=== PATIENT | female | born 1965 | race Caucasian/White ===

== ENCOUNTER → 2017-07-25 | Outpatient (CLI) | payer OTHER | END | disposition home or self-care (01) | LOC: KCIC MRI 16:30 | DX: M48.02 Spinal stenosis, cervical region (principal) | CPT/HCPCS: 72141 ==

== ENCOUNTER → 2017-08-21 | Outpatient (CLI) | payer OTHER ==
[~2017-08-21] MED LIST: IOHEXOL 180 MG/ML 10 ML VIAL.; methylPREDNISolone ACETATE 40 MG/ML VIAL.; methylPREDNISolone ACETATE 80 MG/ML VIAL.
== END | disposition home or self-care (01) ==
LOC: PNCL 13:45
DX: M50.123 Cervical disc disorder at C6-C7 level with radiculopathy (principal)
CPT/HCPCS: 62321; J1030; J1040; Q9965

== ENCOUNTER → 2017-09-11 | Outpatient (CLI) | payer OTHER | END | disposition home or self-care (01) | LOC: PNCL 14:34 | DX: M50.123 Cervical disc disorder at C6-C7 level with radiculopathy (principal); Z88.8 Allergy status to other drugs, medicaments and biological substances | CPT/HCPCS: 62321; J1030; J1040; Q9965 ==

== ENCOUNTER → 2018-09-04 | Outpatient (CLI) | payer OTHER ==
[~2018-09-04] MED LIST changes: +ACET-422 PO; +BUPR150T15 PO; +CETI10TA22 PO; -IOHEXOL 180 MG/ML 10 ML VIAL.; +LORA1TAB PO; +NAPR-514 PO; +RANI-376 PO; -methylPREDNISolone ACETATE 40 MG/ML VIAL.; -methylPREDNISolone ACETATE 80 MG/ML VIAL.
--- NOTE | 2018-09-04 18:02 | KCIC ---
MRI of the cervical spine without contrast 09/04/2018 CLINICAL HISTORY: Chronic neck pain with left arm numbness. TECHNIQUE: Unenhanced T1-weighted, T2-weighted and inversion recovery sagittal and gradient echo and T2-weighted axial images of the cervical spine were obtained. FINDINGS: Comparison study is dated 07/25/2017. There is straightening of the normal cervical lordosis. Degenerative signal changes are seen involving all of the disks of the cervical spine. Degenerative signal changes are seen within the marrow surrounding these discs. Loss of height of the C5-6 and C6-7 discs is noted. No area of abnormal signal intensity is seen involving the cervical spinal cord. A 1.5 cm hemangioma is seen involving the T7 vertebral body. No area of abnormal signal intensity is seen involving the cervical spinal cord. At the C2-3 disc space there is a mild generalized disc bulge. Degenerative changes are seen involving the uncovertebral and facet joints bilaterally. These findings do not result in significant central spinal canal or neural foraminal stenosis. At the C3-4 disc space there is a mild generalized disc bulge. Degenerative changes are seen involving the uncovertebral and facet joints, left greater than right. These findings do not result in significant central spinal canal stenosis. Moderate left neural foraminal stenosis is seen. The right neural foramen is patent. At the C4-5 disc space there is a mild to moderate generalized disc bulge. Degenerative changes are seen involving the uncovertebral and facet joints, left greater than right. These findings when combined do not result in significant central spinal canal stenosis. Mild to moderate left neural foraminal stenosis is seen. The right neural foramen is patent. At the C5-6 disc space there is a moderate generalized disc bulge. This is eccentric to the left. Degenerative changes are seen involving the uncovertebral and facet joints, left greater than right. These findings when combined do not result in significant central spinal canal stenosis. Moderate to severe left neural foraminal stenosis is seen. The right neural foramen is patent. At the C6-7 disc space there is a mild to moderate generalized disc bulge. Degenerative changes are seen involving the uncovertebral and facet joints bilaterally. These findings do not result in significant central spinal canal central spinal canal stenosis. Mild bilateral neural foraminal stenosis is seen. At the C7-T1 disc space there is a mild generalized disc bulge. Degenerative changes are seen involving the facet joints bilaterally. Superimposed on the disc bulge is a right paracentral focal disc protrusion. This measures 2 mm in AP diameter. These findings when combined do not result in significant central spinal canal stenosis. No neural foraminal stenosis is seen. Since the previous examination there has been no significant interval change. IMPRESSION: Degenerative changes are seen throughout the cervical spine. These findings do not result in significant central spinal canal stenosis at any level. Multilevel left-sided neural foraminal stenosis of varying severity is seen as discussed above. Electronically signed by: Augustine Briones MD (09/04/2018 5:59 PM) [facility]
== END | disposition home or self-care (01) ==
LOC: KCIC MRI 16:05
PROVIDERS: ATTEND Family Medicine
DX: M47.892 Other spondylosis, cervical region (principal); M48.02 Spinal stenosis, cervical region; M47.814 Spondylosis without myelopathy or radiculopathy, thoracic region; M50.23 Other cervical disc displacement, cervicothoracic region; D18.09 Hemangioma of other sites
CPT/HCPCS: 72141

== ENCOUNTER → 2018-09-29 | Outpatient (CLI) | payer OTHER ==
--- NOTE | 2018-09-30 09:48 | PAIN ---
DATE OF SERVICE: 09/29/2018 PROGRESS NOTE FOR PAIN CLINIC: DIAGNOSES: Cervical radiculopathy with cervical degenerative disk disease. HISTORY OF PRESENT ILLNESS: The patient is a 53-year-old female who returns for followup status post previous cervical epidural steroid injection last seen in 09/2017. The patient had 2 cervical epidural injections at that time, the first one with about 90% improvement. The patient reports the pain has returned now over the past 2 weeks, has been much more noticeable and miserable in the base of the neck radiating to the left shoulder and arm and upper extremity. The patient reports it is 8 on a scale of 10 at its worst, 4 on average, 2 at its least and is a 4 today. The patient reports it is in the base of the neck going between the shoulder blades, more on the left than the right into the posterior shoulder, posterior triceps and into the forearm, into the medial aspect, into the little finger as well. The patient reports it is aching, sharp, stabbing, on and off in intensity, but worse with weightbearing, worse with extending the neck forward and extension posteriorly of the cervical spine as well as turning to the left or the right can exacerbate the pain fairly significantly. The patient reports it awakens her from sleep at night, intermittently, but not every night, it has been much worse over the past 2 weeks is noted. The patient describes it as stabbing, aching and sharp and shooting in the left arm. The patient reports no new motor or sensory deficits, but it is much more noticeable in the morning. No new other changes. PHYSICAL EXAMINATION: VITAL SIGNS: The patient's blood pressure is 140/76, pulse is 66, respirations are 20, temperature 98.2 degrees Fahrenheit, weight is 114 pounds. GENERAL: The patient is awake, alert, oriented, appropriate, very pleasant demeanor. HEENT: Head normocephalic, atraumatic. Extraocular movements are intact and symmetrical. Oral cavity: Mucous membranes are moist and pink. Dentition is intact. NECK: Shows anterior throat supple without palpable lymphadenopathy noted. Swallow reflex symmetrical. CHEST: Shows normal with inspection. Breath sounds clear to auscultation bilaterally. HEART: Shows S1, S2 clear. No murmurs auscultated. ABDOMEN: Soft, nontender, nondistended. No palpable organomegaly is noted. No rebound or guarding demonstrated. BACK: Shows spine grossly in the midline. Normal appearing thoracic kyphosis and cervical lordotic curvature. Cervical paraspinous muscle shows symmetrical on inspection, with palpation shows some moderate tenderness diffusely throughout the middle and lower distribution of the paraspinous muscles, more on the left than right and into the superior medial and lateral trapezius on the left compared to the right, very firm musculature in the trapezius as well as the rhomboid muscle on the left in the supra and infraspinatus muscles, also very firm, tender on the left compared to the right. The patient's neck shows good rotational motion, but guarded with extension and forward flexion is performed without difficulty. Right and left lateral rotation past 45 degrees is guarded as well and very slow and deliberate. EXTREMITIES: Upper extremities show deep tendon reflexes are 2+ in the biceps, triceps tendons. Motor exam is strong with rfid manager strength rated at 5/5 as is bicep and tricep flexion. Peripheral pulses are 2+ radial distribution. No peripheral edema is noted. Options were discussed with the patient. The patient's old chart was reviewed as his current medication regimen updated. Current review of systems updated today as well. We will proceed with a preauthorization for a cervical epidural steroid injection at C5-C6 level with a significant radiculopathy in the left upper extremity in C5-C6 dermatomal distribution as well as C6-C7 dermatomal distribution. The patient will wait for preauthorization. In the meantime, we will try low dose prednisone 5 mg to take at bedtime extended release for the next 4-5 days and have her return in less than one week if approved and we will plan on cervical epidural steroid injection at that time. The patient was given instruction as well as side effects to be aware of with the medication and will follow up as scheduled. TIA LIMA MD DR: CARLOS/leah JOB#: [id number] / [id number]
== END | disposition home or self-care (01) ==
LOC: PNCL 14:12
PROVIDERS: ATTEND Anesthesiology
DX: M50.10 Cervical disc disorder with radiculopathy, unspecified cervical region (principal)
CPT/HCPCS: G0463

== ENCOUNTER → 2018-10-20 | Outpatient (CLI) | payer OTHER ==
[~2018-10-20] MED LIST changes: +IOHEXOL 180 MG/ML 10 ML VIAL. ONE; +methylPREDNISolone ACETATE 40 MG/ML VIAL. ONE; +methylPREDNISolone ACETATE 80 MG/ML VIAL. ONE
--- NOTE | 2018-10-21 00:06 | PAIN ---
DATE OF SERVICE: 10/20/2018 PROGRESS NOTE FOR PAIN CLINIC DIAGNOSIS: Cervical radiculopathy with cervical degenerative disk disease. HISTORY OF PRESENT ILLNESS: The patient is a 53-year-old female who returns for followup status post initial evaluation, preauthorization for cervical culture ejection, still significant pain in the base and neck and left upper extremity. The patient reports it is worse with activity, repetitive motion of the left upper extremity weightbearing with the left arm. The patient reports it is an 8 on a scale of 10 at its worst in the past week, 6 on average, 3 at its least and is a 6 today. The patient reports it is aching, sharp or often intensity, still waking her from sleep occasionally but most nights she sleeps fairly well. The patient reports no new motor or sensory deficits and no new changes. PHYSICAL EXAMINATION: VITAL SIGNS: The patient's blood pressure 107/74, pulse 69, respirations 18 and temperature 98.2 degrees Fahrenheit. Height is 62 inches and weight is 117 pounds. GENERAL: The patient is awake, alert, oriented, appropriate and very pleasant demeanor. HEENT: Head shows normocephalic and atraumatic. Extraocular movements are intact and symmetrical. Oral cavity, mucous membranes are moist and pink. Dentition is intact. NECK: Shows anterior throat supple, without palpable lymphadenopathy noted. Swallow reflex is symmetrical. CHEST: Shows normal on inspection. Breath sounds clear to auscultation bilaterally. HEART: Shows S1 and S2 clear. No murmurs auscultated. ABDOMEN: Soft, nontender and nondistended. No palpable organomegaly is noted. No rebound or guarding demonstrated. BACK: Shows spine grossly in the midline. Normal-appearing cervical lordotic curvature, thoracic kyphotic curvature and lumbar lordotic curvature. The patient's neck shows with palpation, some moderate tenderness diffusely in the base of the cervical paraspinous musculature into the left trapezius as well but only diffusely. The patient shows good rotation of motion of the cervical spine, both laterally as well as extension and flexion without significant difficulty or limitation. EXTREMITIES: The patient's upper extremities show deep tendon reflexes at 2+ in the biceps and triceps tendons. Motor exam is strong with platform mill supervisor strength rated at 5/5 platform mill supervisor strength as well as bicep and tricep flexion. Peripheral pulses are 2+, radial distribution. No peripheral edema is noted bilaterally. Options were discussed with the patient and the patient's son who is accompanied her to visit today. We will proceed with a cervical epidural steroid injection today with fluoroscopic guidance. Risks were again discussed including, but not limited to bleeding, infection, possibility of epidural hematoma and subsequent neurological compromise, dural puncture headaches, spinal cord and/or nerve damage, side effects of steroid medication and poor results regarding pain control. The patient understands and wished to proceed. The patient will return to the clinic in approximately 2 weeks for followup, was counseled as to return appointment, activity level and side effects to be aware of. DIAGNOSIS: Cervical radiculopathy with cervical degenerative disk disease. PROCEDURE: Cervical epidural steroid injection translaminar approach, C6-C7 level using C-arm fluoroscopic guidance under sterile prep and drape using local anesthetic. MEDICATION INJECTED: A total of 120 mg Depo-Medrol plus 5 mL of preservative-free normal saline and 2 mL of contrast. CONDITION AT DISCHARGE: Stable. The patient tolerated the procedure well and had no complications. TIA LIMA MD DR: CARLOS/leah JOB#: [id number] / [id number]
== END ==
LOC: PNCL 13:53
PROVIDERS: ATTEND Anesthesiology
DX: M50.123 Cervical disc disorder at C6-C7 level with radiculopathy (principal); M54.2 Cervicalgia
CPT/HCPCS: 62321; J1030; J1040; Q9965

== ENCOUNTER → 2018-11-19 | Outpatient (CLI) | payer OTHER ==
--- NOTE | 2018-11-20 00:55 | PAIN ---
DATE OF SERVICE: 11/19/2018 PROGRESS NOTE FOR PAIN CLINIC DIAGNOSES: Cervical radiculopathy with cervical degenerative disk disease. HISTORY OF PRESENT ILLNESS: The patient is a 53-year-old female who returns for followup status post cervical epidural steroid injection x1, with about 95% improvement for first 2-1/2 weeks. The patient reports the pain is now returning, but is still doing well. The patient has increased her activity and feels that she may have "overdone it," but is feeling so much better with still about a 90% improvement overall. The patient reports the pain is a 9 on a scale of 10 at its worst in the past week, 4 on average, 2 at its least, and is 2 today. The patient reports it is stabbing, aching, sharp in the base of the neck and left upper extremity, left shoulder, left arm, mostly in the posterior aspect of the triceps in the forearm, but also in the medial aspect of the left upper arm as well. The patient reports that tingling and burning at times. No overt loss of motor function, but significant fatigability with increased activity. She has increased activity quite a bit when traveling, also took a [address] [place] a holiday 11/13/2018, which exacerbated the pain to a moderate extent as well. The patient reports no new motor or sensory deficits, no new bowel or bladder incontinence or other complaints. PHYSICAL EXAMINATION: VITAL SIGNS: The patient's blood pressure 115/83, pulse 65, respirations 18, temperature is 98.4 degrees Fahrenheit, height is 62 inches, weight is 121 pounds. GENERAL: The patient is awake, alert, oriented, appropriate, very pleasant demeanor. HEENT: Head is normocephalic, atraumatic. Extraocular movements are intact and symmetrical. Oral cavity: Mucous membranes are moist and pink. Dentition is intact. NECK: Shows anterior throat supple without palpable lymphadenopathy noted. Swallow reflex is symmetrical. CHEST: Shows normal with inspection. Breath sounds clear to auscultation bilaterally. HEART: Shows S1, S2 clear. No murmurs auscultated. ABDOMEN: Soft, nontender, nondistended. No palpable organomegaly is noted. No rebound or guarding demonstrated. BACK: Shows spine grossly in the midline. Cervical lordotic curvature shows normal on inspection. With palpation, some moderate tenderness diffusely bilaterally, but only diffusely without significant radiation. The patient has good rotational motion of cervical spine, both laterally greater than 45 degrees, closer to 90 degrees with right and left lateral as well as extension and full forward flexion without significant pain reported. EXTREMITIES: The patient's upper extremities show deep tendon reflexes at 2+ in the biceps and triceps tendons. Motor exam is strong with 5/5 urgent care technician strength, bicep and tricep flexion and symmetrical. Peripheral pulses are 2+ in the radial distribution bilaterally. No edema is noted. Options were discussed with the patient. The patient's old chart was reviewed, her current medication regimen updated, current review of systems updated today as well. We will proceed with a second in this series of cervical epidural steroid injection today with fluoroscopic guidance. Risks were again discussed including, but not limited to bleeding, infection, possibility of epidural hematoma, subsequent neurological compromise, dural puncture, headaches, spinal cord and/or nerve damage, side effects of steroid medication, and poor results regarding pain control. The patient understands and wished to proceed. The patient will return to clinic in approximately 2 weeks for followup, was counseled on return appointment, activity level, and side effects to be aware of. DIAGNOSES: Cervical radiculopathy with cervical degenerative disk disease. PROCEDURE: Cervical epidural steroid injection, translaminar approach C6-C7 level using C-arm fluoroscopic guidance under sterile prep and drape using local anesthetic. MEDICATION INJECTED: A total of 120 mg Depo-Medrol plus 5 mL of preservative-free normal saline and 2 mL of Isovue for contrast. CONDITION AT DISCHARGE: Stable. The patient tolerated procedure well, had no complications. TIA LIMA MD DR: CARLOS/leah JOB#: [id number] / [id number]
== END ==
LOC: PNCL 13:43
PROVIDERS: ATTEND Anesthesiology
DX: M50.123 Cervical disc disorder at C6-C7 level with radiculopathy (principal)
CPT/HCPCS: 62321; J1030; J1040; Q9965

== ENCOUNTER → 2018-12-24 | Outpatient (CLI) | payer OTHER ==
[~2018-12-24] MED LIST changes: +OMEP20TA63 PO
--- NOTE | 2018-12-24 22:36 | PAIN ---
DATE OF SERVICE: 12/24/2018 PROGRESS NOTE FOR PAIN CLINIC DIAGNOSES: Cervical radiculopathy with cervical degenerative disk disease. HISTORY OF PRESENT ILLNESS: The patient is a 53-year-old female who returns for followup status post cervical epidural steroid injections x 2. The patient reports approximately 50% improvement overall in the neck and left upper extremity pain. The patient reports no new motor or sensory deficits, no new changes, still pain with repetitive motion of the left arm, reaching or holding items and with weightbearing. The patient reports it does not awaken her from sleep at night, also some pain in the left shoulder radiating into the left arm, mostly in the posterior tricep, posterior forearm, into the hand with some numbness and tingling. The patient reports it is aching, sharp, shooting, dull and tingling in the hand. The patient reports it is 7 on a scale of 10 at its worst in the past week, 4 on average, 4 at its least and is a 4 today. The patient reports no new motor or sensory deficits or other complaints. PHYSICAL EXAMINATION: VITAL SIGNS: The patient's blood pressure 109/75, pulse 71, respirations 16, temperature 98.3 degrees Fahrenheit and weight is 120 pounds. GENERAL: The patient is awake, alert, oriented, appropriate, very pleasant demeanor. HEENT: Shows normocephalic, atraumatic. Extraocular movements are intact and symmetrical. Oral cavity: Mucous membranes moist and pink. Dentition is intact. NECK: Shows anterior throat is supple without palpable lymphadenopathy noted. Swallow reflex symmetrical. CHEST: Shows normal on inspection. Breath sounds clear to auscultation bilaterally. HEART: Shows S1, S2 clear. No murmurs auscultated. ABDOMEN: Soft, nontender and nondistended. BACK: Shows spine grossly in the midline. Cervical lordotic curvature slightly flattened with some moderate tenderness with palpation of the lumbar and the cervical paraspinous musculature but are symmetrical bilaterally. No trigger points, no radiation. The patient has good rotational motion, slightly guarded with far left lateral rotation, but full extension and full forward flexion without difficulty or pain reported. EXTREMITIES: The patient's upper extremities show deep tendon reflexes 2+ in the biceps and triceps tendons. Motor exam is strong with 5/5 recoater strength, bicep and tricep flexion and symmetrical. Peripheral pulses are 2+ in radial distribution. No peripheral edema is noted bilaterally. Options were discussed with the patient and the patient's spouse who accompanies her to visit today. The patient's old chart was reviewed as her current medication regimen updated. Current review of systems updated today as well. We will proceed with a third in the series of cervical epidural steroid injection today with fluoroscopic guidance. Risks were again discussed including, but not limited to bleeding, infection, possibility of epidural hematoma, subsequent neurologic compromise, dural puncture, headaches, spinal cord and/or nerve damage, side effects of steroid medication and poor results regarding pain control. The patient understands and wished to proceed. The patient will return to the clinic in approximately 2 weeks for followup, was counseled as to return appointment, activity level and side effects to be aware of. DIAGNOSES: Cervical radiculopathy with cervical degenerative disk disease. PROCEDURES: Cervical epidural steroid injection, translaminar approach C6-C7 level using C-arm fluoroscopic guidance under sterile prep and drape using local anesthetic. MEDICATION INJECTED: A total of 120 mg of Depo-Medrol plus 5 mL of preservative-free normal saline and 2 mL of contrast. CONDITION AT DISCHARGE: Stable. The patient tolerated the procedure well, had no complications. TIA LIMA MD DR: CARLOS/leah JOB#: [id number] / [id number]
== END ==
LOC: PNCL 14:06
PROVIDERS: ATTEND Anesthesiology
DX: M50.123 Cervical disc disorder at C6-C7 level with radiculopathy (principal)
CPT/HCPCS: 62321; J1030; J1040; Q9965

== ENCOUNTER → 2019-01-28 | Outpatient (CLI) | payer OTHER ==
[~2019-01-28] MED LIST changes: -IOHEXOL 180 MG/ML 10 ML VIAL. ONE; -methylPREDNISolone ACETATE 40 MG/ML VIAL. ONE; -methylPREDNISolone ACETATE 80 MG/ML VIAL. ONE
--- NOTE | 2019-01-28 23:24 | PAIN ---
DATE OF SERVICE: 01/28/2019 DIAGNOSIS: Cervical radiculopathy with cervical degenerative disk disease and cervical spinal stenosis HISTORY OF PRESENT ILLNESS: The patient is a 53-year-old female who returns for followup status post cervical epidural steroid injection x 3. The patient reports initially about 50% improvement, but after last injection, minimal improvement over the baseline of the neck and radicular pain in her left upper extremity. The patient reports still significant pain in the base of the neck, left shoulder radiating into the left arm, mostly in the posterior triceps, posterior aspect of the forearm, into the hand and fingers, especially the fourth and fifth finger on the left hand. The patient reports very limited rotation of motion and mobility with ability to turn her head to the left with very significant decreased range of motion secondary to the pain and radiculopathy in the left arm. The patient reports her pain is tingling. It is aching, sharp, radiating in the left arm is noted, 9 on a scale of 10 at its worst, 6 on average and 4 at its least and is a 6 today. The patient reports no loss of motor function, but significant fatigability with left arm and favors the left arm by using her right arm more frequently with any activities. The patient reports it is awakening her from sleep at night, still about every 4-5 hours, but no symptoms on the right upper extremity. PHYSICAL EXAMINATION: VITAL SIGNS: The patient's blood pressure 121/84, pulse 78, respirations 16, temperature is 98.2 degrees Fahrenheit, weight is 121 pounds. GENERAL: The patient is awake, alert, oriented, appropriate, very pleasant demeanor. HEENT: Head shows normocephalic, atraumatic. Extraocular movements are intact and symmetrical. Oral cavity: Mucous membranes moist and pink. Dentition is intact. NECK: Shows anterior throat supple without palpable lymphadenopathy noted. Swallow reflex symmetrical. CHEST: Shows normal on inspection. Breath sounds clear to auscultation bilaterally. HEART: Shows S1, S2 clear. ABDOMEN: Soft, nontender, nondistended. BACK: Shows spine grossly in the midline. Cervical paraspinous muscle shows symmetrical on inspection with normal cervical lordotic curvature with palpation some significant tenderness in the inferior aspect of the cervical paraspinous musculature, more on the left than the right and into the superior medial trapezius on the left as well. Very firm musculature, more tender on the left than the right. The patient shows significant limitation in range of motion with lateral rotation of the head to the left with significant guarding of the cervical spine, even to 45 degrees on the left side. Right side shows much better range of motion with closer to 90 degrees far lateral rotation; extension again, very significant pain and limited range of motion secondary to pain with extension greater than 15-20 degrees off midline. Full forward flexion is performed chin to chest. Again, somewhat guarded, but with better range. EXTREMITIES: The patient's upper extremities show deep tendon reflexes 2+ in the biceps and triceps tendons. Motor exam is 5/5 on the right, 4/5 on the left with clerk general strength, bicep and tricep flexion. The patient's peripheral pulses are 2+ in the radial distribution. No peripheral edema is noted bilaterally. ASSESSMENT AND PLAN: Options were discussed with the patient. The patient's old chart was reviewed as her current medication regimen updated. Current review of systems updated today as well and we will hold on any further injections at this time. Recommendation is to have evaluation with neurosurgeon regarding her cervical spinal stenosis as well as cervical radiculopathy and cervical degenerative disk disease with clinical radiculopathy in the C6-C7 dermatome distribution on the left upper extremity. As patient has not responded as successfully with epidural steroid injections this last set of injections, I feel that we should seek a neurosurgical opinion, recommend Dr. Jamison Guillory for such. The patient will clear this with her insurance provider and will have an MRI scan of her cervical spine available for neurosurgical reviewed as well. At this time, the patient will follow up as necessary. TIA LIMA MD DR: CARLOS/leah JOB#: [id number] / [id number]
== END | disposition home or self-care (01) ==
LOC: PNCL 13:24
PROVIDERS: ATTEND Anesthesiology
DX: M50.10 Cervical disc disorder with radiculopathy, unspecified cervical region (principal); M48.02 Spinal stenosis, cervical region
CPT/HCPCS: G0463

== ENCOUNTER → 2019-07-02 | Outpatient (CLI) | payer OTHER ==
[~2019-07-02] MED LIST changes: -CETI10TA22 PO; +CETI10TA24 PO
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
== END | disposition home or self-care (01) ==
LOC: PNCL 14:02
PROVIDERS: ATTEND Anesthesiology
DX: M50.10 Cervical disc disorder with radiculopathy, unspecified cervical region (principal); M48.02 Spinal stenosis, cervical region; M53.3 Sacrococcygeal disorders, not elsewhere classified
CPT/HCPCS: G0463

== ENCOUNTER → 2019-07-16 | Outpatient (CLI) | payer OTHER ==
[~2019-07-16] MED LIST changes: +BUPIVACAINE MPF 0.25% 10 ML VIAL. ONE; +IOHEXOL 180 MG/ML 10 ML VIAL. ONE; +methylPREDNISolone ACETATE 80 MG/ML VIAL. ONE
--- NOTE | 2019-07-16 22:27 | PAIN ---
DATE OF SERVICE: 07/16/2019 PROGRESS NOTE FOR PAIN CLINIC DIAGNOSIS: Coccygodynia. HISTORY OF PRESENT ILLNESS: The patient is a 53-year-old female who returns for followup status post cervical epidural steroid injections and recent office visit for preauthorization for sacrococcygeal ligament injection. The patient has obtained this now and would like to proceed, still significant pain in the tailbone and coccyx region after injury with noted nondisplaced early stage healing fracture of the superior coccyx. The patient reports still significant pain with sitting, changing from a seated to a standing position, walking and wakes her from sleep occasionally, but most nights it does not. The patient reports it is 7 on a scale of 10 at its worst, 5 on average, 5 at its least and is a 5 today. The patient reports it is aching and constant in the tail bone itself. No new motor or sensory deficits, no new changes. PHYSICAL EXAMINATION: VITAL SIGNS: The patient's blood pressure 109/72, pulse 63, respirations 16, temperature is 98.2 degrees Fahrenheit, weight is 125 pounds. GENERAL: The patient is awake, alert, oriented, appropriate, very pleasant demeanor. HEENT: Shows normocephalic, atraumatic. Extraocular movements are intact and symmetrical. Oral cavity shows mucous membranes moist and pink. Dentition is intact. NECK: Shows anterior throat supple without palpable lymphadenopathy noted. Swallow reflex symmetrical. CHEST: Shows normal on inspection. Breath sounds clear to auscultation bilaterally. HEART: Shows S1, S2 clear. No murmurs auscultated. ABDOMEN: Soft, nontender, nondistended. No palpable organomegaly is noted. BACK: Shows spine grossly in the midline. Cervical paraspinous muscle shows symmetrical on inspection, some very mild tenderness in the inferior cervical paraspinous musculature bilaterally, slightly worse with palpation on the left than the right, but present bilaterally. The patient shows no difficulty with extension, flexion, right and left lateral rotation of cervical spine. The patient's lumbar spine shows good rotational motion as well. Paraspinous musculature is symmetrical, without significant tenderness. There is significant tenderness, however, over the inferior aspect of the sacrum and the coccyx, which is very tender with palpation, even moderate to deeper palpation over the coccyx itself without specific radiation. EXTREMITIES: The patient's lower extremities show deep tendon reflexes 2+ in the patellar and 1+ tendo-calcaneus tendons. Motor exam is 5/5 with dorsiflexion and extension. Peripheral pulses are 1+ posterior tibia. No peripheral edema is noted bilaterally. PLAN: Options were discussed with the patient. The patient's old chart was reviewed as her current medication regimen updated. Current review of systems updated today as well. We will proceed with a sacrococcygeal ligament injection today with fluoroscopic guidance. Risks were again discussed including, but not limited to, bleeding, infection, possibility of intravascular injection sequelae, spread of local anesthetic and numbness, side effects of steroid medication, exposure to fluoroscopy and poor results regarding pain control. The patient understands and wished to proceed. The patient will return to clinic in approximately 2 weeks for followup. She was counseled on return appointment, activity level and side effects to be aware of. DIAGNOSIS: Coccydynia. PROCEDURE: Sacrococcygeal ligament injection under fluoroscopic guidance using sterile prep and drape. MEDICATION INJECTED: A total of 2 mL of 0.25% bupivacaine, 80 mg Depo-Medrol and 1.5 mL of contrast. CONDITION AT DISCHARGE: Stable. The patient tolerated the procedure well, had no complications. TIA LIMA MD DR: CARLOS/leah JOB#: [id number] / [id number]
== END ==
LOC: PNCL 14:18
PROVIDERS: ATTEND Anesthesiology
DX: M53.3 Sacrococcygeal disorders, not elsewhere classified (principal)
CPT/HCPCS: 20550; 77002; J1040; J3490; Q9965; 20605

== ENCOUNTER → 2021-04-12 | Outpatient (CLI) | payer OTHER ==
[~2021-04-12] MED LIST changes: -BUPIVACAINE MPF 0.25% 10 ML VIAL. ONE; -CETI10TA24 PO; +CETI10TA74 PO; -IOHEXOL 180 MG/ML 10 ML VIAL. ONE; -methylPREDNISolone ACETATE 80 MG/ML VIAL. ONE
--- NOTE | 2021-04-13 08:48 | KCIC ---
EXAMINATION: Magnetic resonance imaging (MRI) of the cervical spine without contrast 04/12/2021 3:55 P M HISTORY: Neck pain and degenerative disc disease. Cervical stenosis. Left arm pain. TECHNIQUE: Multiplanar multi-weighted MRI of the cervical spine was performed without intravenous con trast using the standard cervical spine protocol. Contrast information: None administered COMPARISON: MRI cervical spine 09/04/2018 FINDINGS: Alignment is stable. T1 hyperintense lesion involving the C7 vertebral body most suggestive of an oss eous hemangioma. Vertebral bodies demonstrate normal signal intensity on all sequences. No acute fra cture is identified; however, if trauma is suspected, a CT scan would be a more sensitive examination for fractures. The craniocervical junction is normal. The visualized portions of the skull base an d the posterior fossa are normal. The spinal cord demonstrates normal signal intensity on all sequen yaya. There is disc desiccation at all levels of the cervical spine. There is mild disc height loss a t C5 C6 C7. Mild anterior marginal osteophytosis. Degenerative changes are identified at the atlantoa xial articulation with mild thickening of the transverse ligament. No soft tissue abnormality is iden tified. Normal signal voids are present in the vertebral arteries. C2-C3: Mild disc bulge. Mild left facet arthropathy. No neuroforaminal stenosis. No significant spina l canal stenosis. C3-C4: There is a posterior disc osteophyte complex. Mild facet arthropathy. Mild right and moderate left uncovertebral joint disease. Moderate left and mild right neural foraminal stenosis. Mild spinal canal stenosis. Findings are stable from the prior examination. C4-C5: There is a posterior disc osteophyte complex. No significant facet arthropathy. Moderate left and mild to moderate right uncovertebral joint disease. Moderate left and mild right neuroforaminal s tenosis. Findings are stable from prior examination. C5-C6: There is a posterior disc osteophyte complex with central disc protrusion. Mild facet arthropa thy. Severe left and moderate right uncovertebral joint disease. Severe left and mild right neural fo raminal stenosis. Findings are stable from the prior examination. Mild spinal canal stenosis without deformity of the cord or cord signal alteration. C6-C7: There is a posterior disc osteophyte complex which appear symmetric. Mild facet arthropathy. M oderate uncovertebral joint disease. Mild/moderate bilateral neuroforaminal stenosis. Mild spinal can al stenosis without deformity of the cord or cord signal alteration. C7-T1: There is a central disc protrusion. Moderate left uncovertebral joint disease. No significant facet arthropathy. Mild to moderate left neuroforaminal stenosis. Findings are stable. No significant spinal canal stenosis. IMPRESSION: Moderate degenerative changes of the cervical spine as described in detail above. Findings are not si gnificantly changed since prior examination. Electronically signed by: Grisel Wilder MD (04/13/2021 8:46 AM) [id number]
== END ==
LOC: KCIC MRI 14:58
PROVIDERS: ATTEND Family Medicine
DX: M47.812 Spondylosis without myelopathy or radiculopathy, cervical region (principal); M50.21 Other cervical disc displacement, high cervical region; M48.8X2 Other specified spondylopathies, cervical region; M48.03 Spinal stenosis, cervicothoracic region; M25.78 Osteophyte, vertebrae; M50.30 Other cervical disc degeneration, unspecified cervical region
CPT/HCPCS: 72141

== ENCOUNTER → 2021-04-17 | Outpatient (CLI) | payer OTHER ==
[~2021-04-17] MED LIST changes: +ASPI-630 PO; +IOHEXOL 180 MG/ML 10 ML VIAL. ONE; +LEVO25TA55 PO; +estrogen; +methylPREDNISolone ACETATE 40 MG/ML VIAL. ONE; +methylPREDNISolone ACETATE 80 MG/ML VIAL. ONE
--- NOTE | 2021-04-17 16:11 | PDOC4 ---
Procedure Note: ICD 10 Code: ICD 10 Code: M54.12 M50.30 M 40.02 Procedure Note: Patient was consented for cervical epidural steroid injection with fluoroscopic guidance. Risks were discussed including but not limited to: Bleeding, infection, possibility of epidural hematoma and subsequent neurological compromise, dural puncture, headaches, spinal cord and/or nerve damage, side effects of steroid medication, and poor results regarding pain control. Patient understands and wished to proceed. Procedure cervical epidural steroid injection at the C6-7 level, using local anesthetic under sterile prep and drape using C-arm fluoroscopic guidance under local anesthesia medications injected ;120 mg Depo-Medrol +5 mL normal saline and 2 mL contrast; condition at discharge is stable patient tolerated procedure well. and had no complications TIA LIMA MD Apr 17, 2021 16:11
--- NOTE | 2021-04-17 16:11 | PDOC ---
Progress Note - Pain Clinic Date of Service: DOS: DATE: 04/17/21 TIME: 16:07 Diagnosis: Dx: Cervical radiculopathy with cervical degenerative disease and cervical spinal stenosis History or Present Illness: HPI: 55-year-old female returns for follow-up last seen July 2019 patient had done very well after cervical epidural steroid injections also have some sacrococcygeal ligament pain with an injection there as well patient reports that that has resolved over time but her pain in her neck has began to return in the base the neck and shoulders in the left upper extremity greater than the right. 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 overhead with her left hand disturbing sleep occasionally but not most nights patient report is aching and sharp in the neck and shooting and tingling in the arm and forearm can be constant with activity patient reports is a 9 on scale 10 is worse over the past week 5 on average for its least and is a 5 today patient did have a new MRI scan dated April 12, 2021 showing moderate dege nerative changes C4-5 C5 66 7 and C7-T1 with central disc protrusion at C7-T1 with mild to moderate left neuroforaminal stenosis C6-7 shows mild to moderate bilateral neuroforaminal stenosis C5-6 showing severe left and mild right neuroforaminal stenosis and posterior disc osteophyte complex C4-5 with moderate left and mild right neuroforaminal stenosis as well. Patient reports a loss of motor function with significant fatigability of the left upper extremity as well. Physical Exam: VS: Blood pressure 140/94 pulse 85 respirations 16 temp 90 Fahrenheit height is 5 foot 2 inches weight is 128 pounds. PE: PHYSICAL EXAMINATION: GENERAL: The patient is awake, alert, oriented, appropriate, very pleasant in demeanor HEENT: Shows normocephalic, atraumatic. Extraocular movements are intact and symmetrical. Oral cavity: Mucous membranes moist and pink. Dentition is intact. NECK: Shows anterior throat supple without palpable lymphadenopathy noted. Swallow reflex symmetrical. CHEST: Shows normal on inspection. Breath sounds are clear bilaterally, distant no rales or rhonchi. HEART: Shows S1, S2 clear. No murmurs auscultated. ABDOMEN: Soft, nontender, nondistended. No palpable organomegaly is noted. BACK: Shows spine grossly in the midline. Normal-appearing cervical lordotic curvature. Cervical paraspinous muscles show symmetrical with inspection, palpation some moderate tenderness diffusely in the inferior aspect cervical paraspinous muscles are slightly more on the left than the right present bilaterally into the superior medial trapezius on the left side as well but without trigger points without atrophy hypertrophy. Patient shows full rotation motion cervical spine both laterally as well as extension flexion without significant difficulty as well. There is slightly increased thoracic kyphosis, some minor flattening of the lumbar lordotic curvature. EXTREMITIES: Upper extremities show deep tendon reflexes 2+ in the biceps and triceps tendons. 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 Peripheral pulses are 2+ radial. No p eripheral edema is noted bilaterally. Upper extremities are warm and dry to touch, equal in color and appearance. SKIN: Shows warm and dry, good turgor. No edema. No sores, rashes or bruising throughout. Procedure: Procedure: Options discussed with the patient. Patient's old chart was reviewed as her current medication regimen updated current review of systems updated today as well. We will proceed with a cervical epidural steroid injection today with fluoroscopic guidance. Risks were discussed including but not limited to: Bleeding, infection, possibility of epidural hematoma and subsequent n eurological compromise, dural puncture, headaches, spinal cord and/or nerve damage, side effects of steroid medication, and poor results regarding pain control. Patient understands and wished to proceed. Patient will return to clinic in approximately 2 weeks for follow-up, was counseled as return appointment, activity level, and side effect to be aware Medication Injected: Med Injected: Procedure cervical epidural steroid injection at the C6-7 level, using local anesthetic under sterile prep and drape using C-arm fluoroscopic guidance under local anesthesia medications injected ;120 mg Depo-Medrol +5 mL normal saline and 2 mL contrast; condition at discharge is stable patient tolerated procedure well. and had no complications Condition at Discharge: Condition at Discharge: Condition at discharge stable, patient tolerated the procedure well and had no complications. TIA LIMA MD Apr 17, 2021 16:11
== END | disposition home or self-care (01) ==
LOC: PNCL 15:18
PROVIDERS: ATTEND Anesthesiology
DX: M50.10 Cervical disc disorder with radiculopathy, unspecified cervical region (principal); M48.02 Spinal stenosis, cervical region; Z79.82 Long term (current) use of aspirin; Z79.899 Other long term (current) drug therapy; Z88.8 Allergy status to other drugs, medicaments and biological substances
CPT/HCPCS: 62321; J1030; J1040; Q9965

== ENCOUNTER → 2021-06-12 | Outpatient (CLI) | payer OTHER ==
[~2021-06-12] MED LIST changes: -methylPREDNISolone ACETATE 40 MG/ML VIAL. ONE
--- NOTE | 2021-06-12 16:27 | PDOC4 ---
Procedure Note: ICD 10 Code: ICD 10 Code: M54.12 M50.30 M4 8.02 Procedure Note: Patient was consented for cervical epidural steroid injection with fluoroscopic guidance. Risks were discussed including but not limited to: Bleeding, infection, possibility of epidural hematoma and subsequent neurological compromise, dural puncture, headaches, spinal cord and/or nerve damage, side effects of steroid medication, and poor results regarding pain control. Patient understands and wished to proceed. Procedure cervical epidural steroid injection at the C6-7 level, using local anesthetic under sterile prep and drape using C-arm fluoroscopic guidance under local anesthesia medications injected ;120 mg Depo-Medrol +5 mL normal saline and 2 mL contrast; condition at discharge is stable patient tolerated procedure well. and had no complications TIA LIMA MD Jun 12, 2021 16:27
--- NOTE | 2021-06-12 16:27 | PDOC ---
Progress Note - Pain Clinic Date of Service: DOS: DATE: 06/12/21 TIME: 16:23 Diagnosis: Dx: Cervical radiculopathy with cervical spinal stenosis and cervical degenerative disc disease History or Present Illness: HPI: 55-year-old female returns for follow-up status post cervical epidural steroid injection last seen April 17, 2021 patient did very well with about 70% improvement for almost 1 month patient reports the pain returning in the base the neck and left upper extremity back of the shoulder posterior upper arm into the forearm posteriorly mostly and into the anterior forearm as well as into the hand and finger especially the distal fingers on the left side patient reported stabbing and aching dull in the neck as well as burning and cramping in the neck with shooting tight sensation in the left upper extremity patient reports no loss of motor function but significant fatigability with the left upper extremity with repetitive motions weightbearing reaching over her head with her left hand and difficulty with sleeping awakens her from sleep about 3 to 4 hours at night especially if she is on her left side. Patient reports no deficits but significant fatigability. Patient reports initially to do much better with household activities rest of work activities try with greater ease and comfort as well but the pain is returning now as described. We also discussed the spasticity component of her pain in more detail, and will prescribe tizanidine 4 mg 1 to 2 tablets every 6 hours for muscle relaxation. Patient was given instructions as well as side effects to be aware of with the new medication. Physical Exam: VS: Blood pressure is 120/84 pulse 80 respirations 18 temperature is 98.1 weight is 123 pounds PE: PHYSICAL EXAMINATION: GENERAL: The patient is awake, alert, oriented, appropriate, very pleasant in demeanor HEENT: Shows normocephalic, atraumatic. Extraocular movements are intact and symmetrical. Oral cavity: Mucous membranes moist and pink. Dentition is intact. NECK: Shows anterior throat supple without palpable lymphadenopathy noted. Swallow reflex symmetrical. CHEST: Shows normal on inspection. Breath sounds are clear bilaterally. HEART: Shows S1, S2 clear. No murmurs auscultated., Distant but no rales or rh onchi ABDOMEN: Soft, nontender, nondistended. No palpable organomegaly is noted. BACK: Shows spine grossly in the midline. Normal-appearing cervical lordotic curvature. Cervical paraspinous muscles show symmetrical inspection on palpation some moderate tenderness diffusely more in the left than the right in the inferior aspect of the cervical paraspinous musculature without specific radiation or trigger points patient shows good rotation motion cervical spine both laterally as well as extension flexion without significant limitation with some guarding with extension only. There is slightly increased thoracic kyphosis, some minor flattening of the lumbar lordotic curvature. EXTREMITIES: Upper extremities show deep tendon reflexes 2 in the patellar and t endo calcaneus tendons. Motor exam is 5 on a scale of 5 with right dorsiflexion, extension, quadriceps and hamstring flexion and 4/5 on the left. Peripheral pulses are 2+ posterior tibial. No peripheral edema is noted bilaterally. Upper extremities are warm and dry to touch, equal in color and appearance. Shoulder shrug is strong and intact without loss strength on resistance bilaterally. SKIN: Shows warm and dry, good turgor. No edema. No sores, rashes or bruising throughout. Procedure: Procedure: Options were discussed with the patient. Patient's old chart was viewed as her current medication regimen updated current review of systems updated today as well. We will proceed with a cervical epidural steroid injection today with fluoroscopic guidance. Risks were discussed including but not limited to: Bleeding, infection, possibility of epidural hematoma and subsequent neurological compromise, dural puncture, headaches, spinal cord and/or nerve damage, side effects of steroid medication, and poor results regarding pain control. Patient understands and wished to proceed. Patient return to clinic in approximately 2 weeks for follow-up, was counseled as to return appointment, activity level, and side effect to be aware of. Medication Injected: Med Injected: Procedure cervical epidural steroid injection at the C6-7 level, using local anesthetic under sterile prep and drape using C-arm fluoroscopic guidance under local anesthesia medications injected ;120 mg Depo-Medrol +5 mL normal saline and 2 mL contrast; condition at discharge is stable patient tolerated procedure well. and had no complications Condition at Discharge: Condition at Discharge: Condition at discharge stable, patient tolerated the procedure well and had no complications. TIA LIMA MD Jun 12, 2021 16:27
== END | disposition home or self-care (01) ==
LOC: PNCL 15:01
PROVIDERS: ATTEND Anesthesiology
DX: M50.10 Cervical disc disorder with radiculopathy, unspecified cervical region (principal); M48.02 Spinal stenosis, cervical region; M54.12 Radiculopathy, cervical region; Z79.82 Long term (current) use of aspirin; Z79.899 Other long term (current) drug therapy; Z88.8 Allergy status to other drugs, medicaments and biological substances
CPT/HCPCS: 62321; J1040; Q9965

== ENCOUNTER → 2021-09-05 | Outpatient (CLI) | payer OTHER ==
[~2021-09-05] MED LIST changes: +DEXAMETHASONE PRES.FREE 10 MG/ML VIAL. ONE; -methylPREDNISolone ACETATE 80 MG/ML VIAL. ONE
--- NOTE | 2021-09-05 16:46 | PDOC ---
Progress Note - Pain Clinic Date of Service: DOS: DATE: 09/05/21 TIME: 16:42 Diagnosis: Dx: Cervical radiculopathy with cervical spinal stenosis and cervical degenerative disc disease Coccygodynia History or Present Illness: HPI: 56-year-old female returns for follow-up status post cervical epidural steroid injection last seen June 12, 2021 patient did very well with about 70% improvement in the pain in the base the neck and left shoulder and upper extremity patient reports the pain is returning now over the past week or 2 and the left upper extremity and left forearm and hand with numbness and tingling the first and second fingers patient reports is coming more constant in the left hand and arm also has a new pain in the upper mid back more between the shoulder blades and has a thoracic MRI scan ordered and we will get that scheduled for her today. Patient reports her pain is 8 on scale 10 is worse over the past week 6 on average 4 to [place] is a 5 today patient scribes aching and sharp tingling can be constant worse with repetitive motions reaching overhead with her left arm and weightbearing and reaching forward patient reports again the tingling is changed and is becoming more constant now as well as some muscle spasms in the upper mid back on the left side, again thoracic MRI scan will be scheduled while she is here today. Physical Exam: VS: Blood pressure is 129/97 pulse 85 respirations 20 temperature 98.6 F weight is 115 pounds. PE: PHYSICAL EXAMINATION: GENERAL: The patient is awake, alert, oriented, appropriate, very pleasant in demeanor, patient accompanied by her . HEENT: Shows normocephalic, atraumatic. Extraocular movements are intact and symmetrical. Oral cavity: Mucous membranes moist and pink. Dentition is intact. NECK: Shows anterior throat supple without palpable lymphadenopathy noted. Swallow reflex symmetrical. CHEST: Shows normal on inspection. Breath sounds are clear bilaterally. HEART: Shows S1, S2 clear. No murmurs auscultated. ABDOMEN: Soft, nontender, nondistended. No palpable organomegaly is noted. BACK: Shows spine grossly in the midline. Normal-appearing cervical lordotic curvature. Cervical paraspinous muscles are symmetrical with inspection, on palpation some moderate tenderness diffusely in the inferior aspect cervical paraspinous posterior on the left side and into the superior medial trapezius as well, with very firm musculature in the left trapezius as well as the rhomboid distribution on the left but not the right. Patient shows no specific asymmetry but very firm ropelike musculature in the left rhomboid compared to the right to about mid-scapular region. There is slightly increased thoracic kyphosis, some minor flattening of the lumbar lordotic curvature. EXTREMITIES: Upper extremities show deep tendon reflexes 2+ in the biceps and triceps tendons. Motor exam is 5 on a scale of 5 with right beaming inspector, biceps and triceps flexion and 4/5 on the left. Peripheral pulses are 2+ radial. No peripheral edema is noted bilaterally. Upper extremities are warm and dry to touch, equal in color and appearance. SKIN: Shows warm and dry, good turgor. No edema. No sores, rashes or bruising throughout. Procedure: Procedure: Options discussed with the patient. Patient's old chart was reviewed as her current medication regimen updated current review of systems updated today as well. We will proceed with a cervical epidural steroid injection today with fluoroscopic guidance. Risks were discussed including but not limited to: Bleeding, infection, possibility of epidural hematoma and subsequent neurological compromise, dural puncture, headaches, spinal cord and/or nerve damage, side effects of steroid medication, and poor results regarding pain control. Patient understands and wished to proceed. Patient will return to the clinic in approximately 2 weeks for follow-up, was counseled as to return appointment, activity level, and side effect to be aware of. Medication Injected: Med Injected: Procedure cervical epidural steroid injection at the C6-7 level, using local anesthetic under sterile prep and drape using C-arm fluoroscopic guidance under local anesthesia medications injected ; 20 mg dexamethasone +5 mL normal s carolyn and 2 mL contrast; condition at discharge is stable patient tolerated procedure well. and had no complications Condition at Discharge: Condition at Discharge: Condition at discharge stable, paced tolerated procedure well and had no complications. TIA LIMA MD Sep 05, 2021 16:46
--- NOTE | 2021-09-05 16:48 | PDOC4 ---
Procedure Note: ICD 10 Code: ICD 10 Code: M54.12 M48.02 M50.30 Procedure Note: Patient was consented for cervical epidural steroid injection with fluoroscopic guidance. Risks were discussed including but not limited to: Bleeding, infection, possibility of epidural hematoma and subsequent neurological compromise, dural puncture, headaches, spinal cord and/or nerve damage, side effects of steroid medication, and poor results regarding pain control. Patient understands and wished to proceed. Procedure cervical epidural steroid injection at the C6-7 level, using local a nesthetic under sterile prep and drape using C-arm fluoroscopic guidance under local anesthesia medications injected ; 20 mg dexamethasone +5 mL normal saline and 2 mL contrast; condition at discharge is stable patient tolerated procedure well. and had no complications TIA LIMA MD Sep 05, 2021 16:48
== END | disposition home or self-care (01) ==
LOC: PNCL 15:18
PROVIDERS: ATTEND Anesthesiology
DX: M50.10 Cervical disc disorder with radiculopathy, unspecified cervical region (principal); M48.02 Spinal stenosis, cervical region; M54.12 Radiculopathy, cervical region; M53.3 Sacrococcygeal disorders, not elsewhere classified; Z79.82 Long term (current) use of aspirin; Z79.899 Other long term (current) drug therapy
CPT/HCPCS: 62321; J1100; Q9965

== ENCOUNTER → 2021-10-02 | Outpatient (CLI) | payer OTHER ==
[~2021-10-02] MED LIST changes: -DEXAMETHASONE PRES.FREE 10 MG/ML VIAL. ONE; -IOHEXOL 180 MG/ML 10 ML VIAL. ONE
--- NOTE | 2021-10-02 16:35 | KCIC ---
MRI THORACIC SPINE WO INDICATION: Chronic Tsp pain. Left arm numbness. TECHNIQUE: Multi-planar multi-weighted magnetic resonance imaging of the thoracic spine was performed without contrast using the standard protocol. COMPARISON: None. FINDINGS: The thoracic spine is normally aligned. No acute fracture. Vertebral body heights are maintained with out compression deformity. Mild multilevel degenerative disc desiccation and disc height loss. Bone m arrow signal intensity is normal. The spinal cord is normal in signal intensity. The conus medullaris terminates at a normal level. No soft tissue abnormality within the visualized chest or abdomen. The visualized thoracic aorta is n ormal caliber. Multilevel small disc bulges. No significant neuroforaminal narrowing or spinal canal stenosis. IMPRESSION: Mild thoracic spondylosis. No significant spinal canal stenosis or neural foraminal narrowing. Electronically signed by: Fabio Valencia MD (10/02/2021 4:33 PM) [facility]
== END ==
LOC: KCIC MRI 14:21
PROVIDERS: ATTEND Family Medicine
DX: M51.34 Other intervertebral disc degeneration, thoracic region (principal)
CPT/HCPCS: 72146